=== PATIENT | female | born 1955 | race Caucasian/White ===

== ENCOUNTER → 2016-09-30 | Outpatient (CLI) | payer MEDICARE | LOC: CT 10:00 | DX: Z86.711 Personal history of pulmonary embolism (principal) | CPT/HCPCS: 71250 ==

== ENCOUNTER 2020-07-25 13:39 | Emergency (ER) | payer MEDICARE, SELFPAY ==
[~2020-07-25 13:39] MED LIST: AUBAGIO14 MG PO; B COMPLEX1 EACH PO; BACTRIM DS TAB1 EACH PO; CALCIUM500 M1 PO; CALTRATE 600 +1 EAC1 PO; CARDIZEM CD240 MG PO; CEFDINIR300 MG PO; CEFUROXIME500 MG PO; CENTRUM SILVER1 EAC4 PO; COZAAR100 MG PO; DAILY VALUE1 EACH PO; DIFLUCAN150 MG PO; DILTIAZEM 24HR240 MG PO; EFFEXOR 25 MG T25 MG PO; EFFEXOR XR150 MG PO; FLONASE 0.05% N16 GM; FOSAMAX70 MG PO; GABAPENTIN400 MG PO; GLUCOPHAGE XR500 MG PO; KEFLEX500 MG PO; LAC-HYDRIN FIV226 GM TP; LEVOCETIRIZINE D5 MG PO; LIORESAL TAB 1010 MG PO; LORTAB 7.5-3251 EACH PO; MULTIVITAMINS1 EAC1 PO; MYCOSTATIN POWD15 GM TOP; NEURONTIN 400400 MG PO; NORCO 5-325 TA1 EACH PO; NORCO 7.5-3251 EACH PO; NORVASC 5 MG TAB5 MG PO; NORVASC10 MG PO; OMEPRAZOLE20 MG PO; OMEPRAZOLE40 MG PO; OMNICEF 300 MG300 MG PO; PRAVACHOL40 MG PO; PREDNISONE 5 MG5 MG PO; SINGULAIR10 MG PO; TENORMIN 25 MG25 MG PO; TYLENOL 325MG325 MG PO; VALIUM 2 MG TAB2 MG PO; VITAMIN B-121000 MCG PO; VITAMIN B-122000 MC1 PO; VITAMIN D32000 UNI1 PO; VITAMIN D35000 UNI1 PO; VOLTAREN100 GM TOP; ZOFRAN ODT 4 MG4 MG SL; ZOFRAN4 MG PO; ZYRTEC10 MG PO
[2020-07-25 14:34] LABS: HEMOGLOBIN 11.4 gm/dl (12.3-15.3); RED BLOOD COUNT 3.7 M/UL (4.00-5.10); WHITE BLOOD COUNT 4.9 K/UL (4.5-11.0)
[2020-07-25 15:10] LABS: BUN/CREATININE RATIO 13 (0-10)
[2020-12-31] MEDS ORDERED: MACROBID 100 M100 MG PO (14:40)
[2020-12-31] MEDS ORDERED: ZANAFLEX2 MG PO (14:41)
[2020-12-31] MEDS ORDERED: COZAAR50 MG PO (14:41)
[2020-12-31] MEDS ORDERED: COLESTID1 GM PO (14:42)
[2020-12-31] MEDS ORDERED: BIOTIN 800 MCG1 EACH PO (14:43)
[2020-12-31] MEDS ORDERED: VITAMIN D PO (14:43)
[2020-12-31] MEDS ORDERED: CALCIUM PO (14:44)
[2020-12-31] MEDS ORDERED: VITAMIN C1000 MG PO (14:44)
[2020-12-31] MEDS ORDERED: TYLENOL 8 HOUR650 MG PO (14:44)
[2020-12-31] MEDS ORDERED: [UNRECOGNIZED DRUG - OTHER] TOP (14:45)
[2020-12-31] MEDS ORDERED: [UNRECOGNIZED DRUG - REMARK] TOP (14:46)
[2020-12-31] MEDS ORDERED: HYDROCHLOROTH12.5 MG PO (14:47)
[2020-12-31] MEDS ORDERED: PROZAC40 MG PO (14:48)
[2020-12-31] MEDS ORDERED: PROTONIX40 MG PO (14:48)
[2020-12-31] MEDS ORDERED: K-TAB ER10 MEQ PO (14:49)
[2020-12-31] MEDS ORDERED: LOPRESSOR100 MG PO (14:49)
[2020-12-31] MEDS ORDERED: VENLAFAXINE HC100 MG PO (14:50)
[2020-12-31] MEDS ORDERED: DICLOFENAC GEL 1% TOP (14:51)
[2020-12-31] MEDS ORDERED: AMMONIUM LAC CREAM TOP (14:51)
[2020-12-31] MEDS ORDERED: ULTRAM50 MG PO (14:52)
== END 2020-07-25 17:20 | disposition home or self-care (01) ==
LOC: ER1 13:39
PROVIDERS: Family Medicine
DX: M54.2 Cervicalgia (principal); M79.602 Pain in left arm; M79.601 Pain in right arm; M79.642 Pain in left hand; M79.641 Pain in right hand; R51.9 Headache, unspecified; J02.9 Acute pharyngitis, unspecified; R05 Cough; R19.7 Diarrhea, unspecified; N39.0 Urinary tract infection, site not specified; E11.9 Type 2 diabetes mellitus without complications; I10 Essential (primary) hypertension; E66.01 Morbid (severe) obesity due to excess calories; Z86.16 Personal history of COVID-19
CPT/HCPCS: 71045; 80053; 81001; 82550; 82553; 83605; 83874; 84439; 84443; 84484; 85025; 85610; 87081; 87880; 99284

== ENCOUNTER 2020-08-12 19:35 | Emergency (ER) | payer MEDICARE, OTHER ==
[2020-08-12 21:17] LABS: HEMOGLOBIN 13.2 gm/dl (12.3-15.3); RED BLOOD COUNT 4.25 M/UL (4.00-5.10); WHITE BLOOD COUNT 7.9 K/UL (4.5-11.0)
[2020-08-12 21:46] LABS: BUN/CREATININE RATIO 19 (0-10)
[2020-08-13] MEDS ORDERED: ZOFRAN 4 MG TAB4 MG PO (05:50)
[2020-08-13] MEDS ORDERED: OMNICEF 300 MG300 MG PO (05:50)
[2020-08-13] MEDS ORDERED: K-DUR TAB 20 M20 MEQ PO (12:09)
[2020-12-31] MEDS ORDERED: MACROBID 100 M100 MG PO (14:40)
[2020-12-31] MEDS ORDERED: ZANAFLEX2 MG PO (14:41)
[2020-12-31] MEDS ORDERED: COZAAR50 MG PO (14:41)
[2020-12-31] MEDS ORDERED: COLESTID1 GM PO (14:42)
[2020-12-31] MEDS ORDERED: VITAMIN D PO (14:43)
[2020-12-31] MEDS ORDERED: BIOTIN 800 MCG1 EACH PO (14:43)
[2020-12-31] MEDS ORDERED: CALCIUM PO (14:44)
[2020-12-31] MEDS ORDERED: TYLENOL 8 HOUR650 MG PO (14:44)
[2020-12-31] MEDS ORDERED: VITAMIN C1000 MG PO (14:44)
[2020-12-31] MEDS ORDERED: [UNRECOGNIZED DRUG - OTHER] TOP (14:45)
[2020-12-31] MEDS ORDERED: [UNRECOGNIZED DRUG - REMARK] TOP (14:46)
[2020-12-31] MEDS ORDERED: HYDROCHLOROTH12.5 MG PO (14:47)
[2020-12-31] MEDS ORDERED: PROTONIX40 MG PO (14:48)
[2020-12-31] MEDS ORDERED: PROZAC40 MG PO (14:48)
[2020-12-31] MEDS ORDERED: LOPRESSOR100 MG PO (14:49)
[2020-12-31] MEDS ORDERED: K-TAB ER10 MEQ PO (14:49)
[2020-12-31] MEDS ORDERED: VENLAFAXINE HC100 MG PO (14:50)
[2020-12-31] MEDS ORDERED: AMMONIUM LAC CREAM TOP (14:51)
[2020-12-31] MEDS ORDERED: DICLOFENAC GEL 1% TOP (14:51)
[2020-12-31] MEDS ORDERED: ULTRAM50 MG PO (14:52)
== END 2020-08-13 13:33 | disposition home or self-care (01) ==
LOC: ER1 19:35
PROVIDERS: Emergency Medicine
DX: N39.0 Urinary tract infection, site not specified (principal); E87.6 Hypokalemia; R19.7 Diarrhea, unspecified; R06.02 Shortness of breath; E11.9 Type 2 diabetes mellitus without complications; I10 Essential (primary) hypertension; D64.9 Anemia, unspecified; Z86.711 Personal history of pulmonary embolism; Z86.16 Personal history of COVID-19; Z20.822 Contact with and (suspected) exposure to COVID-19
CPT/HCPCS: 36600; 71045; 78580; 80053; 81001; 82550; 82553; 82803; 83605; 83690; 83874; 83880; 84484; 85025; 85379; 87040; 87077; 87086; 87186; 96365; 96375; 96376; 99285; A9540; J0696; J1200; J2930; Q9967; U0002

== ENCOUNTER → 2020-10-08 | Outpatient (CLI) | payer MEDICARE, OTHER ==
[~2020-10-08] MED LIST changes: +AMMONIUM LAC CREAM TOP; +BIOTIN 800 MCG1 EACH PO; +CALCIUM PO; +COLESTID1 GM PO; +COZAAR 25MG TAB25 MG PO; +COZAAR50 MG PO; +DICLOFENAC GEL 1% TOP; +ELIQUIS2.5 MG PO; +HYDROCHLOROTH12.5 MG PO; +K-DUR TAB 20 M20 MEQ PO; +K-TAB ER10 MEQ PO; +LOPRESSOR100 MG PO; +MACROBID 100 M100 MG PO; +PROTONIX40 MG PO; +PROZAC40 MG PO; +TYLENOL 8 HOUR650 MG PO; +ULTRAM50 MG PO; +VENLAFAXINE HC100 MG PO; +VITAMIN C1000 MG PO; +VITAMIN D PO; +ZANAFLEX2 MG PO; +ZOFRAN 4 MG TAB4 MG PO; +[UNRECOGNIZED DRUG - OTHER] TOP; +[UNRECOGNIZED DRUG - REMARK] TOP
== END ==
LOC: EXRD 10-07 14:00
DX: M81.0 Age-related osteoporosis without current pathological fracture (principal)
CPT/HCPCS: 77080

== ENCOUNTER → 2020-12-31 | Outpatient (CLI) | payer MEDICARE, OTHER ==
[2020-12-31 12:55] LABS: HEMOGLOBIN 11.4 gm/dl (12.3-15.3); RED BLOOD COUNT 3.74 M/UL (4.00-5.10); WHITE BLOOD COUNT 3.7 K/UL (4.5-11.0)
== END ==
LOC: EDSTATUS 11:30 → OPSV2 11:30
PROVIDERS: Orthopaedic Surgery
DX: Z01.818 Encounter for other preprocedural examination (principal); M17.11 Unilateral primary osteoarthritis, right knee
CPT/HCPCS: 36415; 71046; 80048; 83036; 85027; 87081; 87086; 93005

== ENCOUNTER → 2021-01-12 | Outpatient (CLI) | payer MEDICARE | LOC: LAB 10:58 | PROVIDERS: Orthopaedic Surgery | DX: Z01.812 Encounter for preprocedural laboratory examination (principal) | CPT/HCPCS: 36415; 80048; 86850; 86900; 86901 ==

== ENCOUNTER 2021-01-13 08:40 | Inpatient (IN) | payer MEDICARE, SELFPAY ==
[~2021-01-13] VITALS: Ht 157.5 cm; Wt 91.2 kg
[~2021-01-13 08:40] MED LIST changes: -COZAAR 25MG TAB25 MG PO; -ELIQUIS2.5 MG PO
[2021-01-14 03:05] LABS: HEMOGLOBIN 9.7 gm/dl (12.3-15.3); RED BLOOD COUNT 3.14 M/UL (4.00-5.10); WHITE BLOOD COUNT 8.5 K/UL (4.5-11.0)
[2021-01-15 09:42] LABS: HEMOGLOBIN 9.1 gm/dl (12.3-15.3); RED BLOOD COUNT 2.94 M/UL (4.00-5.10)
[2021-01-15 09:43] LABS: WHITE BLOOD COUNT 10.7 K/UL (4.5-11.0)
[2021-01-15] MEDS ORDERED: COZAAR 25MG TAB25 MG PO (11:56)
[2021-01-15] MEDS ORDERED: ELIQUIS2.5 MG PO (12:04)
[2021-01-15] MEDS ORDERED: GABAPENTIN400 MG PO (16:14)
== END 2021-01-15 16:48 | DRG 470 ==
LOC: M/S 08:40 → OR 08:40 → M/S 10:39 → EDSTATUS 13:45 → M/S 16:33 → OR 16:33 → M/S 01-15 16:48
PROVIDERS: Internal Medicine; Internal Medicine Infectious Disease; ADMIT Orthopaedic Surgery
PROC: 0SRC0J9 Replacement of Right Knee Joint with Synthetic Substitute, Cemented, Open Approach (ICD-10-PCS; principal; 2021-01-13 11:15)
DX: M17.11 Unilateral primary osteoarthritis, right knee (principal); N39.0 Urinary tract infection, site not specified; Z20.822 Contact with and (suspected) exposure to COVID-19; E78.5 Hyperlipidemia, unspecified; I12.9 Hypertensive chronic kidney disease with stage 1 through stage 4 chronic kidney disease, or unspecified chronic kidney disease; F79 Unspecified intellectual disabilities; N18.30 Chronic kidney disease, stage 3 unspecified; E11.22 Type 2 diabetes mellitus with diabetic chronic kidney disease; F32.9 Major depressive disorder, single episode, unspecified; K21.9 Gastro-esophageal reflux disease without esophagitis; G35 Multiple sclerosis; E66.01 Morbid (severe) obesity due to excess calories; Y83.8 Other surgical procedures as the cause of abnormal reaction of the patient, or of later complication, without mention of misadventure at the time of the procedure; G47.33 Obstructive sleep apnea (adult) (pediatric); N28.9 Disorder of kidney and ureter, unspecified; Z86.711 Personal history of pulmonary embolism; Z90.89 Acquired absence of other organs; Z86.718 Personal history of other venous thrombosis and embolism; Z90.49 Acquired absence of other specified parts of digestive tract; Z90.710 Acquired absence of both cervix and uterus; Z98.51 Tubal ligation status; Z91.041 Radiographic dye allergy status; Z98.42 Cataract extraction status, left eye; Z98.41 Cataract extraction status, right eye; Z83.3 Family history of diabetes mellitus; Z80.8 Family history of malignant neoplasm of other organs or systems; Z79.4 Long term (current) use of insulin; Z68.37 Body mass index [BMI] 37.0-37.9, adult
CPT/HCPCS: 36415; 73560; 76000; 80048; 80053; 82962; 85025; 85027; 86850; 86900; 86901; 97116-GP-CQ; 97162; 97166; 97530-GP-CQ; 97535; C1776; C9113; J0690; J1100; J1170; J2250; J2370; J2405; J2704; J2765; J2795; J7120

== ENCOUNTER → 2021-02-24 | Outpatient (CLI) | payer MEDICARE, OTHER ==
[~2021-02-24] MED LIST changes: +COZAAR 25MG TAB25 MG PO; +ELIQUIS2.5 MG PO
== END ==
LOC: LBRF 12:56
DX: N39.0 Urinary tract infection, site not specified (principal); Z20.822 Contact with and (suspected) exposure to COVID-19
CPT/HCPCS: 87086; U0003

== ENCOUNTER → 2021-04-07 | Outpatient (CLI) | payer MEDICARE | LOC: EXRD 10:11 | DX: S69.92XA Unspecified injury of left wrist, hand and finger(s), initial encounter (principal); M19.042 Primary osteoarthritis, left hand | CPT/HCPCS: 73130 ==

== ENCOUNTER → 2021-07-28 | Outpatient (CLI) | payer MEDICARE ==
[~2021-07-28] MED LIST changes: +GLUCOPHAGE 500500 MG PO; +MUCINEX; +MULTI-VITAMIN1 EACH PO; +TYLENOL EXTRA500 MG PO; +VITAMIN C 500500 MG PO; +VITAMIN D 40400 UNIT PO; -VITAMIN D PO; +VOLTAREN
[2021-07-28 09:58] LABS: RED BLOOD COUNT 3.84 M/UL (4.00-5.10); WHITE BLOOD COUNT 6.5 K/UL (4.5-11.0)
== END ==
LOC: OPSV2 09:00
PROVIDERS: Orthopaedic Surgery
DX: Z01.818 Encounter for other preprocedural examination (principal); M17.12 Unilateral primary osteoarthritis, left knee; I10 Essential (primary) hypertension; E11.9 Type 2 diabetes mellitus without complications
CPT/HCPCS: 80048; 85025; 93005

== ENCOUNTER → 2021-09-09 | Outpatient (CLI) | payer MEDICARE ==
[~2021-09-09] MED LIST changes: +BIOTIN800 MCG PO; +DILTIAZEM 24HR240 M1 PO; +ONDANSETRON ODT4 MG PO; +VITAMIN D310 MC2 PO; -VOLTAREN; +VOLTAREN GEL 1% TOP
[2021-09-09 12:02] LABS: HEMOGLOBIN 11.7 gm/dl (12.3-15.3); RED BLOOD COUNT 3.79 M/UL (4.00-5.10); WHITE BLOOD COUNT 5.3 K/UL (4.5-11.0)
== END ==
LOC: OPSV2 10:56 → EDSTATUS 11:00 → OPSV2 11:00
PROVIDERS: Orthopaedic Surgery
DX: Z01.812 Encounter for preprocedural laboratory examination (principal); M17.12 Unilateral primary osteoarthritis, left knee
CPT/HCPCS: 80048; 83036; 85025

== ENCOUNTER → 2021-09-17 | Outpatient (CLI) | payer MEDICARE ==
[~2021-09-17] MED LIST changes: +MUPIROCIN22 GM TOP
== END ==
LOC: HEART 5 09-15 08:45 → ECHO 08:05 → HEART 5 08:05
DX: R07.9 Chest pain, unspecified (principal)
CPT/HCPCS: ECHO; 78452; 93306; A9502; J2785

== ENCOUNTER → 2021-09-21 | Outpatient (CLI) | payer MEDICARE | LOC: CT 13:35 | DX: R63.4 Abnormal weight loss (principal) | CPT/HCPCS: 36415; 82565 ==

== ENCOUNTER 2021-09-22 09:17 | Day surgery (SDC) | payer MEDICARE, OTHER ==
[~2021-09-22] VITALS: Ht 157.5 cm; Wt 91.6 kg
[~2021-09-22 09:17] MED LIST changes: -MUPIROCIN22 GM TOP
[2021-09-22] MEDS ORDERED: MUPIROCIN22 GM TOP (18:20)
[2021-09-22] MEDS ORDERED: GLUCOPHAGE 500500 MG PO (18:20)
[2021-09-23 03:14] LABS: HEMOGLOBIN 10.6 gm/dl (12.3-15.3); RED BLOOD COUNT 3.53 M/UL (4.00-5.10); WHITE BLOOD COUNT 5.3 K/UL (4.5-11.0)
--- NOTE | 2021-09-25 02:08 | NUR ---
PATIENT BP OF 148/110 WITH HEART RATE OF 158. CHECKED MANUALLY. CALLED DR. GAMBLE. RECEIVED ORDER FOR 100 MG PO METOPROLOL AND CLASS 1 TELE.
[2021-09-25 08:12] LABS: HEMOGLOBIN 11.1 gm/dl (12.3-15.3); RED BLOOD COUNT 3.68 M/UL (4.00-5.10); WHITE BLOOD COUNT 6.4 K/UL (4.5-11.0)
[2021-09-25] MEDS ORDERED: ASPIRIN 325MG325 MG PO (08:13)
[2021-09-25] MEDS ORDERED: HYDROCODON-ACE1 EAC6 PO (10:48)
== END 2021-09-25 13:42 ==
LOC: OR 09:17 → M/S 09:17 → OR 09-25 13:42
PROVIDERS: Internal Medicine; Orthopaedic Surgery
DX: M17.12 Unilateral primary osteoarthritis, left knee (principal); M79.4 Hypertrophy of (infrapatellar) fat pad; E78.5 Hyperlipidemia, unspecified; G47.33 Obstructive sleep apnea (adult) (pediatric); N17.9 Acute kidney failure, unspecified; E11.22 Type 2 diabetes mellitus with diabetic chronic kidney disease; I12.9 Hypertensive chronic kidney disease with stage 1 through stage 4 chronic kidney disease, or unspecified chronic kidney disease; N18.30 Chronic kidney disease, stage 3 unspecified; G35 Multiple sclerosis; F32.A Depression, unspecified; Z20.822 Contact with and (suspected) exposure to COVID-19; Z96.651 Presence of right artificial knee joint; Z98.51 Tubal ligation status; Z90.710 Acquired absence of both cervix and uterus; Z90.49 Acquired absence of other specified parts of digestive tract; Z91.041 Radiographic dye allergy status; Z91.048 Other nonmedicinal substance allergy status
CPT/HCPCS: 36415; 73560; 76000; 80048; 82962; 85027; 86850; 86900; 86901; 97110-GP-CQ; 97116-GP-CQ; 97161; 97166; 97530-GP-CQ; 97535; C1776; J0690; J1170; J1885; J2405; J2704; J2795; J3010; J3370; J7120; U0002

== ENCOUNTER → 2021-11-03 | Outpatient (CLI) | payer MEDICARE ==
[~2021-11-03] MED LIST changes: +ASPIRIN 325MG325 MG PO; +HYDROCODON-ACE1 EAC6 PO; +MUPIROCIN22 GM TOP
[2021-11-03 12:18] LABS: HEMOGLOBIN 11.9 gm/dl (12.3-15.3); RED BLOOD COUNT 3.92 M/UL (4.00-5.10); WHITE BLOOD COUNT 7.2 K/UL (4.5-11.0)
== END ==
LOC: LAB 11:38
PROVIDERS: Nurse Practitioner Family
DX: I12.9 Hypertensive chronic kidney disease with stage 1 through stage 4 chronic kidney disease, or unspecified chronic kidney disease (principal); E11.22 Type 2 diabetes mellitus with diabetic chronic kidney disease; N18.30 Chronic kidney disease, stage 3 unspecified; E78.5 Hyperlipidemia, unspecified; Z79.899 Other long term (current) drug therapy
CPT/HCPCS: 36415; 80053; 80061; 82570; 82607; 83036; 84156; 84439; 84443; 85025

== ENCOUNTER → 2021-11-10 | Outpatient (CLI) | payer MEDICARE | LOC: KOH-I 13:57 | DX: L60.8 Other nail disorders (principal); R23.1 Pallor | CPT/HCPCS: 93925 ==

== ENCOUNTER → 2021-11-11 | Day surgery (SDC) | payer MEDICARE | END | disposition home or self-care (01) | LOC: OR 07:55 | DX: K25.7 Chronic gastric ulcer without hemorrhage or perforation (principal); K29.60 Other gastritis without bleeding; K31.819 Angiodysplasia of stomach and duodenum without bleeding; K31.9 Disease of stomach and duodenum, unspecified; K52.9 Noninfective gastroenteritis and colitis, unspecified; I10 Essential (primary) hypertension; E78.5 Hyperlipidemia, unspecified; K21.9 Gastro-esophageal reflux disease without esophagitis; E11.65 Type 2 diabetes mellitus with hyperglycemia; E78.00 Pure hypercholesterolemia, unspecified; F32.A Depression, unspecified; E66.01 Morbid (severe) obesity due to excess calories; G47.30 Sleep apnea, unspecified; Z99.89 Dependence on other enabling machines and devices; Z68.36 Body mass index [BMI] 36.0-36.9, adult; Z91.041 Radiographic dye allergy status; Z88.8 Allergy status to other drugs, medicaments and biological substances | CPT/HCPCS: 82962; J2704; J7040 ==

== ENCOUNTER → 2021-11-16 | Outpatient (CLI) | payer MEDICARE | LOC: LAB 10:55 | PROVIDERS: Internal Medicine Nephrology | DX: N18.32 Chronic kidney disease, stage 3b (principal) | CPT/HCPCS: 36415; 80048 ==

== ENCOUNTER 2021-12-01 08:49 | Emergency (ER) | payer MEDICARE ==
[2021-12-01 09:37] LABS: RED BLOOD COUNT 3.75 M/UL (4.00-5.10); WHITE BLOOD COUNT 5.6 K/UL (4.5-11.0)
[2021-12-01 09:49] LABS: BUN/CREATININE RATIO 14 (0-10)
== END 2021-12-01 09:55 | disposition short-term general hospital (02) ==
LOC: ER1 08:49
PROVIDERS: Family Medicine
DX: I12.9 Hypertensive chronic kidney disease with stage 1 through stage 4 chronic kidney disease, or unspecified chronic kidney disease (principal); N18.9 Chronic kidney disease, unspecified; E11.22 Type 2 diabetes mellitus with diabetic chronic kidney disease
CPT/HCPCS: 70450; 71045; 80053; 82550; 82553; 84484; 85025; 85610; 85730; 93005; 99285; J2997

== ENCOUNTER → 2022-01-26 | Outpatient (CLI) | payer MEDICARE ==
[2022-01-27 11:14] LABS: CREATININE, URINE 143.2 mg/dL (Not Estab.)
== END ==
LOC: LAB 09:40
PROVIDERS: Internal Medicine Nephrology
DX: N18.32 Chronic kidney disease, stage 3b (principal)
CPT/HCPCS: 36415; 80048; 82043; 82570

== ENCOUNTER → 2022-04-16 | Outpatient (CLI) | payer MEDICARE ==
[2022-04-16 13:43] LABS: HEMOGLOBIN 11.2 gm/dl (12.3-15.3); RED BLOOD COUNT 3.79 M/UL (4.00-5.10); WHITE BLOOD COUNT 4.9 K/UL (4.5-11.0)
[2022-04-17 10:14] LABS: CREATININE, URINE 160.9 mg/dL (Not Estab.)
== END ==
LOC: LAB 12:45
PROVIDERS: Nurse Practitioner Family
DX: E11.22 Type 2 diabetes mellitus with diabetic chronic kidney disease (principal); I12.9 Hypertensive chronic kidney disease with stage 1 through stage 4 chronic kidney disease, or unspecified chronic kidney disease; N18.32 Chronic kidney disease, stage 3b; R39.9 Unspecified symptoms and signs involving the genitourinary system; N17.9 Acute kidney failure, unspecified; E78.00 Pure hypercholesterolemia, unspecified
CPT/HCPCS: 36415; 80053; 80061; 81001; 82043; 82570; 82607; 83036; 84156; 84439; 84443; 85025; 87086